=== PATIENT | male | born 1945 | race Caucasian/White ===

== ENCOUNTER 2017-11-03 08:00 | Inpatient (IN) | payer OTHER ==
[~2017-11-03] VITALS: Ht 175.3 cm; Wt 95.3 kg
[~2017-11-03 08:00] MED LIST: ASA81 MG PO; ATIVAN2 M1 PO; CIPROFLOXACIN750 MG PO; CLONAZEPAM1 MG PO; COREG CR20 MG PO; DOCUSATE SODIU100 MG PO; GLUMETZA1000 MG PO; INDUR PO; LOSARTAN-HCTZ1 EAC1 PO; METHYLPRED4 MG/DOSE- PO; NEURONTIN PO; NEURONTIN600 MG PO; NORVASC5 MG PO; PERCOCET 5/3251 TAB PO; PLAVIX75 MG PO; PROTONIX40 MG PO; RENEXA PO; TAMS0.4C PO
[2017-11-11] MEDS ORDERED: DOCUSATE SODIU100 MG PO (12:25)
[2017-11-11] MEDS ORDERED: GABAPENTIN800 MG PO (12:25)
[2017-11-11] MEDS ORDERED: CIPROFLOXACIN750 MG PO (12:26)
[2017-11-11] MEDS ORDERED: CLONAZEPAM1 MG PO (12:27)
[2017-11-11] MEDS ORDERED: PERCOCET 5-3251 EACH PO (12:27)
== END 2017-11-11 14:51 | disposition home or self-care (01) | DRG 460 ==
LOC: PED 11-10 05:15 → O/R 11-10 05:15 → SURH 11-10 08:00 → PED 11-10 13:51
PROVIDERS: Orthopaedic Surgery Orthopaedic Surgery of the Spine
PROC: 0ST20ZZ Resection of Lumbar Vertebral Disc, Open Approach (ICD-10-PCS; 2017-11-10)
PROC: 07DS3ZZ Extraction of Vertebral Bone Marrow, Percutaneous Approach (ICD-10-PCS; 2017-11-10)
PROC: 0SG00AJ Fusion of Lumbar Vertebral Joint with Interbody Fusion Device, Posterior Approach, Anterior Column, Open Approach (ICD-10-PCS; principal; 2017-11-10 09:30)
DX: M48.061 Spinal stenosis, lumbar region without neurogenic claudication (principal); F13.20 Sedative, hypnotic or anxiolytic dependence, uncomplicated; M96.1 Postlaminectomy syndrome, not elsewhere classified; M51.16 Intervertebral disc disorders with radiculopathy, lumbar region; I11.9 Hypertensive heart disease without heart failure; I25.10 Atherosclerotic heart disease of native coronary artery without angina pectoris; Z88.0 Allergy status to penicillin; K29.70 Gastritis, unspecified, without bleeding; E08.42 Diabetes mellitus due to underlying condition with diabetic polyneuropathy; R07.89 Other chest pain